=== PATIENT | male | born 1980 | race Caucasian/White ===

== ENCOUNTER 2023-03-19 02:16 | Emergency (ER) | payer OTHER ==
[2023-03-19] MEDS ORDERED: Acetaminophen 500 MG TAB ONE (02:46)
[2023-03-19] MEDS ORDERED: Ibuprofen 800 MG TAB ONE (02:46)
[2023-03-19] MEDS ORDERED: cefTRIAXone (ROCEPHIN) 1 GM VIAL ONE (02:51)
[2023-03-19] MEDS ORDERED: Lidocaine 1% PF 5 ML VIAL ONE (02:51)
== END 2023-03-19 04:03 | disposition home or self-care (01) ==
LOC: MADERS 02:16
DX: H65.92 Unspecified nonsuppurative otitis media, left ear (principal); H73.92 Unspecified disorder of tympanic membrane, left ear; J06.9 Acute upper respiratory infection, unspecified; I10 Essential (primary) hypertension; E78.00 Pure hypercholesterolemia, unspecified; E11.9 Type 2 diabetes mellitus without complications; Z79.899 Other long term (current) drug therapy; Z79.84 Long term (current) use of oral hypoglycemic drugs
CPT/HCPCS: 87081; 87430; 87635; 87804; 96372; 99283; J0696

== ENCOUNTER 2023-03-28 13:09 | Emergency (ER) | payer OTHER, SELFPAY | END 2023-03-28 14:00 | disposition home or self-care (01) | LOC: MADERS 13:09 | DX: H92.02 Otalgia, left ear (principal); I10 Essential (primary) hypertension; E78.00 Pure hypercholesterolemia, unspecified; E11.9 Type 2 diabetes mellitus without complications; Z76.0 Encounter for issue of repeat prescription; Z79.899 Other long term (current) drug therapy | CPT/HCPCS: 99282 ==